=== PATIENT | female | born 1975 ===

== ENCOUNTER 2016-10-13 10:25 | Emergency (ER) | payer SELFPAY ==
[2016-10-13 10:44] VITALS: BMI 30.2
[2016-10-13 10:47] VITALS: TEMP 98.2; O2SAT 100
[2016-10-13] MEDS ORDERED: Sodium Chloride 0.9% 1,000 ML IV STA (11:17)
--- NOTE | 2016-10-13 11:20 | ED PDOC ---
Arrival/HPI - General Chief Complaint: Back Pain Time Seen by Provider: 10/13/16 11:06 Historian: Patient - History of Present Illness Narrative History of Present Illness (Text): 10/13/16 11:18 41 year old female who denies significant past medical history presents to the emergency department complaining of severe left flank pain for the past three days. Patient describes a dull pain associated with nausea. She states she has never had this pain before. She notes that she has had a fibroid before that felt somewhat similar but not this painful. Patient states she cannot find a comfortable position to alleviate the pain. She reports she last took Tylenol yesterday. Denies urinary symptoms, rash, or shortness of breath. No other complaints at this time. Time/Duration: < week Symptom Onset: Sudden Symptom Course: Unchanged Modifying Factors (Text): None Associated Symptoms (Text): Nausea Past Medical History - Provider Review Nursing Documentation Reviewed: Yes - Tetanus Immunization Tetanus Immunization: Unknown - Past Medical History Past Medical History: No Previous - Psychiatric Hx Psychophysiologic Disorder: No Hx Depression: No Hx Emotional Abuse: No Hx Physical Abuse: No Hx Substance Use: No - Surgical History Hx Section: Yes - Suicidal Assessment Feels Threatened In Home Enviroment: No Family/Social History - Physician Review Nursing Documentation Reviewed: Yes Family/Social History: Unknown Family HX Smoking Status: Light Smoker < 10 Cigarettes Daily Hx Alcohol Use: No Hx Substance Use: No Hx Substance Use Treatment: No Allergies/Home Meds Allergies/Adverse Reactions: Allergies aloe Allergy (Verified 10/13/16 10:44) RASH Review of Systems - Physician Review All systems were reviewed & negative as marked: Yes - Review of Systems Gastrointestinal: Nausea Genitourinary Female: absent: Dysuria, Frequency, Hematuria Musculoskeletal: Other (Left flank pain) Physical Exam - Physical Exam Narrative Physical Exam (Text): Constitutional: No acute distress. Head: Normocephalic. Atraumatic. Eyes: PERRL. ENT: Moist mucous membranes. Neck: Supple. Cardiovascular: Regular rate. Chest: No tenderness. Respiratory: Clear to auscultation bilaterally. GI: Soft. Nontender. Nondistended. Back: No CVA tenderness. Musculoskeletal: No tenderness or swelling of extremities. Skin: No rash. Neurologic: Alert, no focal deficit. Vital Signs Reviewed: Yes Vital Signs Temp Pulse Resp BP Pulse Ox 10/13/16 12:40 75 18 121/71 100 10/13/16 11:30 79 18 122/79 100 10/13/16 10:44 98.2 F 86 16 124/86 100 Temperature: Afebrile Blood Pressure: Normal Pulse: Regular Respiratory Rate: Normal Appearance: Positive for: Well-Appearing, Non-Toxic, Uncomfortable Pain Distress: Moderate Mental Status: Positive for: Alert and Oriented X 3 Medical Decision Making ED Course and Treatment: Impression: 41 year old female, no PMHX, presents with left flank pain with nausea for the past three days. Differential Diagnosis included but are not limited to: Kidney stone Plan: -- CT Abdomen/Pelvis -- Toradol, Zofran -- Labs -- Reassess and disposition Prior Visits: Notes and results from previous visits were reviewed. Patient was seen in the emergency department for nausea and vomiting on 10/01/14 and discharged home. Progress Notes: 10/13/16 12:39 CT Abdomen/Pelvis [employer] Decoration Designer: Dayday Shelton MD IMPRESSION: Fibroid uterus. No acute intra-abdominal findings. 10/13/16 12:45 Patient states she feels much better. Will discharge, advised f/u with OBGYN for fibroid, return to ER for worsening pain, fever, vomiting, dyspnea, or any other problem. - Lab Interpretations Lab Results: 10/13/16 12:10 10/13/16 12:10 Lab Results 10/13/16 12:10: WBC 6.3 D, RBC 3.84, Hgb 12.4, Hct 36.3, MCV 94.5, MCH 32.3, MCHC 34.2, RDW 12.5, Plt Count 243, MPV 9.8, Gran % 62.7, Lymph % (Auto) 29.9, Hardy % (Auto) 4.1, Eos % (Auto) 3.0, Baso % (Auto) 0.3, Gran # 3.96, Lymph # 1.9 , Hardy # 0.3, Eos # 0.2, Baso # 0.02, Sodium 137, Potassium 3.9, Chloride 102, Carbon Dioxide 27, Anion Gap 12, BUN 12, Creatinine 0.7, Est GFR ( Amer) > 60, Est GFR (Non-Af Amer) > 60, Random Glucose 115 H, Calcium 9.0, Total Bilirubin 0.4, AST 17, ALT 15, Alkaline Phosphatase 53, Total Protein 7.2, Albumin 3.7, Globulin 3.4, Albumin/Globulin Ratio 1.1, Lipase 57 10/13/16 11:20: Urine Color Yellow, Urine Appearance Clear, Urine pH 6.0, Ur Specific [place] 1.025, Urine Protein Negative, Urine Glucose (UA) Negative, Urine Ketones Negative, Urine Blood Small H, Urine Nitrate Negative, Urine Bilirubin Negative, Urine Urobilinogen 0.2, Ur Leukocyte Esterase Negative, Urine RBC 0 - 2, Urine WBC 0 - 2, Ur Epithelial Cells 3 - 4, Urine Bacteria Few , Urine HCG, Qual Negative - RAD Interpretation Radiology Orders: 10/13/16 11:17 ABD & PELVIS W/O PO OR IV CONT [CT] Stat - Medication Orders Current Medication Orders: Discontinued Medications Sodium Chloride (Sodium Chloride 0.9%) 1,000 mls @ 999 mls/hr IV .Q1H1M STA Stop: 10/13/16 12:17 Last Admin: 10/13/16 11:44 Dose: 999 MLS/HR eMAR Start Stop Document 10/13/16 11:44 EQ (Rec: 10/13/16 11:44 EQ [facility] [id number]) Intravenous Solution Start Date 10/13/16 Start Time 11:44 Ketorolac Tromethamine (Toradol) 30 mg IVP STAT STA Stop: 10/13/16 11:18 Last Admin: 10/13/16 11:32 Dose: 30 MG IVP Administration Document 10/13/16 11:32 EQ (Rec: 10/13/16 11:32 EQ [facility] [id number]) Charges for Administration # of IVP Administrations 1 Ondansetron HCl (Zofran Inj) 8 mg IVP STAT STA Stop: 10/13/16 11:18 Last Admin: 10/13/16 11:47 Dose: Not Given Non-Admin Reason: Patient Refused - Scribe Statement The provider has reviewed the documentation as recorded by the Akil Zelaya Provider Scribe Attestation: All medical record entries made by the Scribe were at my direction and personally dictated by me. I have reviewed the chart and agree that the record accurately reflects my personal performance of the history, physical exam, medical decision making, and the department course for this patient. I have also personally directed, reviewed, and agree with the discharge instructions and disposition. Disposition/Present on Arrival - Present on Arrival Any Indicators Present on Arrival: No History of DVT/PE: No History of Uncontrolled Diabetes: No Urinary Catheter: No History of Decub. Ulcer: No History Surgical Site Infection Following: None - Disposition Have Diagnosis and Disposition been Completed?: Yes Diagnosis: Flank pain, Fibroid Disposition: HOME/ ROUTINE Disposition Time: 12:45 Patient Plan: Discharge Condition: STABLE Discharge Instructions (ExitCare): Flank Pain (ED), Uterine Fibroids (ED) Prescriptions: Ibuprofen [Motrin] 600 mg PO Q6 #25 tab Famotidine [Pepcid] 1 tab PO BID #14 tab Ondansetron ODT [Zofran ODT] 4 mg PO Q8 #12 odt Forms: WORK NOTE
[2016-10-13 11:31] VITALS: RESP 18
[2016-10-13 11:31] LABS: URINE BILIRUBIN NEGATIVE (NEGATIVE); URINE BLOOD SMALL (NEGATIVE); URINE GLUCOSE (UA) NEGATIVE (NEGATIVE); URINE KETONE NEGATIVE (NEGATIVE); URINE LEUKOCYTE ESTERASE NEGATIVE Leu/uL (NEGATIVE); URINE PROTEIN NEGATIVE mg/dL (<30 mg/dL); URINE UROBILINOGEN 0.2 E.U./dL (<1 E.U./dL)
[2016-10-13 11:44] LABS: URINE APPEARANCE CLEAR (CLEAR); URINE COLOR YELLOW (YELLOW)
[2016-10-13 11:45] LABS: URINE BACTERIA FEW (NEG); URINE RBC 0 - 2 /hpf (0-2); URINE WBC 0 - 2 /hpf (0-6)
[2016-10-13 12:15] LABS: ADD MANUAL DIFF? NO
[2016-10-13 12:19] LABS: BASO # 0.02 K/mm3 (0.0-2.0); BASO % 0.3 % (0.0-3.0); EOS # 0.2 (0.0-0.7); GRAN # 3.96 (1.4-6.5); GRAN % 62.7 % (50.0-68.0); HEMATOCRIT 36.3 % (36.0-48.0); LYMPH # 1.9 (1.2-3.4); LYMPH % 29.9 % (22.0-35.0); MEAN CELL VOLUME 94.5 fL (80.0-105.0); MEAN CORPUSCULAR HEMOGLOBIN 32.3 pg (25.0-35.0); MEAN CORPUSCULAR HGB CONC 34.2 g/dl (31.0-37.0); MEAN PLATELET VOLUME 9.8 fl (7.0-11.0); MONO # 0.3 (0.1-0.6); MONO % 4.1 % (1.0-6.0); PLATELET COUNT 243 10^3/uL (120.0-450.0); RED CELL DISTRIBUTION WIDTH 12.5 % (11.5-14.5); WHITE BLOOD COUNT 6.3 10^3/ul (4.5-11.0)
--- NOTE | 2016-10-13 12:26 | CT ---
PROCEDURE: CT Abdomen and Pelvis without intravenous contrast HISTORY: L flank pain COMPARISON: None. TECHNIQUE: Without contrast.. Contrast Dose: Radiation dose: Total exam DLP = 636 mGy-cm. FINDINGS: LOWER THORAX: Unremarkable. LIVER: Unremarkable. No gross lesion or ductal dilatation. GALLBLADDER AND BILE DUCTS: Unremarkable. PANCREAS: Unremarkable. No gross lesion or ductal dilatation. SPLEEN: Unremarkable. ADRENALS: Unremarkable. No mass. KIDNEYS AND URETERS: Unremarkable. No hydronephrosis. No solid mass. There is a nonobstructing 2 mm stone in the right kidney VASCULATURE: Unremarkable. No aortic aneurysm. BOWEL: Unremarkable. No obstruction. No gross mural thickening. APPENDIX: Unremarkable. Normal appendix. PERITONEUM: Unremarkable. No free fluid. No free air. LYMPH NODES: Unremarkable. No enlarged lymph nodes. BLADDER: Unremarkable. REPRODUCTIVE: The uterine fundus is enlarged consistent with fibroids. The fundus measures 11.3 cm in width by 7.8 cm AP. BONES: No acute fracture. OTHER FINDINGS: None. IMPRESSION: Fibroid uterus. No acute intra-abdominal findings
[2016-10-13 12:28] LABS: ALB/GLOB RATIO 1.1 (1.1-1.8); ALKALINE PHOSPHATASE 53 U/L (38-133); ALT/SGPT 15 U/L (7-56); AST/SGOT 17 U/L (15-39); BILIRUBIN,TOTAL 0.4 mg/dL (0.2-1.3); BLOOD UREA NITROGEN 12 mg/dL (7-21); CARBON DIOXIDE 27 mmol/L (21-33); CHLORIDE 102 mmol/L (98-107); GFR AFRICAN-AMERICAN > 60; GLUCOSE,RANDOM 115 mg/dL (70-110); LIPASE 57 U/L (23-300); POTASSIUM 3.9 mmol/L (3.6-5.0); SODIUM 137 mmol/L (132-148); TOTAL PROTEIN 7.2 g/dL (5.8-8.3)
[2016-10-13 12:41] VITALS: BP 121/71; PULSE 75
== END 2016-10-13 12:52 | disposition home or self-care (01) ==
LOC: ED 10:25
DX: D25.9 Leiomyoma of uterus, unspecified (principal); R10.9 Unspecified abdominal pain
CPT/HCPCS: 74176; 80053; 81001; 83690; 84703; 85025; 87086; 96374; 99283; J1885; J7040

== ENCOUNTER 2017-03-12 11:37 | Emergency (ER) | payer OTHER ==
[2017-03-12 11:37] VITALS: BMI 30.2
[2017-03-12 11:50] VITALS: TEMP 97.9; O2SAT 100
[2017-03-12] MEDS ORDERED: Penicillin G Benzathine 2.4 Mill Unit/4 ml Syr IM ONE (12:12)
--- NOTE | 2017-03-12 12:22 | ED PDOC ---
Arrival/HPI - General Chief Complaint: ENT Problem Time Seen by Provider: 03/12/17 12:00 Historian: Patient - History of Present Illness Narrative History of Present Illness (Text): 03/12/17 12:45 Patient reports 3 days of sore throat with no other complaints. Otherwise: (-) cough, (-) sfever, (-) URI symptoms, (-) SOB, (-) chest pain, (-) N/V/D, (-) abdominal pain, (-) flank pain, (-) urinary symptoms, (-) recent travel, (-) sick contacts. PMD none Past Medical History - Provider Review Nursing Documentation Reviewed: Yes - Infectious Disease Hx of Infectious Diseases: None - Tetanus Immunization Tetanus Immunization: Unknown - Past Medical History Past Medical History: No Previous - Psychiatric Hx Psychophysiologic Disorder: No Hx Depression: No Hx Emotional Abuse: No Hx Physical Abuse: No Hx Substance Use: No - Surgical History Hx Section: Yes (x1) - Suicidal Assessment Feels Threatened In Home Enviroment: No Family/Social History - Physician Review Nursing Documentation Reviewed: Yes Family/Social History: No Known Family HX Smoking Status: Light Smoker < 10 Cigarettes Daily Hx Alcohol Use: Yes Frequency of alcohol use: Socially Hx Substance Use: No Hx Substance Use Treatment: No Allergies/Home Meds Allergies/Adverse Reactions: Allergies aloe Allergy (Verified 03/12/17 11:50) RASH Home Medications: Home Meds Medication Instructions Recorded Confirmed No Known Home Med 03/12/17 03/12/17 Review of Systems - Review of Systems Constitutional: Normal. absent: Fatigue, Weight Change, Fevers ENT: Normal, Sore Throat. absent: Hearing Changes, Rhinorrhea, Epistaxis, Sinus Congestion Respiratory: Normal. absent: SOB, Cough, Wheezing Musculoskeletal: Normal. absent: Arthralgias, Back Pain, Neck Pain Skin: Normal. absent: Rash, Pruritis, Skin Lesions Physical Exam - Physical Exam Narrative Physical Exam (Text): 03/12/17 12:46 GENERAL APPEARANCE: Patient is awake, alert, oriented x 3, in no acute distress. SKIN: Warm, dry; (-) cyanosis, (-) rash. EYES: (-) conjunctival pallor, (-) scleral icterus, (-) conjunctival hemorrhage. ENMT: Mucous membranes moist. TMs: (-) erythema. Airway patent: (-) stridor. Pharynx: (+) erythema, (+) exudate mostly on the L side. NECK: (-) tenderness, (-) stiffness, (-) meningismus, (+) non-tender anterior cervical lymphadenopathy. CHEST AND RESPIRATORY: (-) accessory muscle use. Lungs: (-) rales, (-) rhonchi, (-) wheezes, (-) rub; breath sounds equal bilaterally. HEART AND CARDIOVASCULAR: (-) irregularity; (-) murmur, (-) gallop, (-) rub. ABDOMEN AND GI: Soft; (-) tenderness, (-) guarding; (-) organomegaly; (-) mass ; (-) CVA tenderness. EXTREMITIES: (-) deformity; (-) cellulitis, (-) lymphangitis; (-) subungual hemorrhage; (-) edema. NEURO AND PSYCH: Mental status as above; (-) focal findings. Vital Signs Temp Pulse Resp BP Pulse Ox 03/12/17 11:45 97.9 F 86 18 119/76 100 Medical Decision Making ED Course and Treatment: 03/12/17 12:20 41 yo F presents with 3 day h/o sore throat. On exam, patient noted to have pharyngitis. Patient treated with penicillin G 1.2 million units IM. Patient advised to drink plenty of fluids. Take over-the- counter Tylenol or Motrin when necessary for fever and pain. Otherwise the patient was instructed to follow up with the clinic in 1-2 days without fail. Return to the emergency room at any time for any new or worsening symptoms. Patient states she fully agrees with and understands discharge instructions. States that she agrees with the plan and disposition. Verbalized and repeated discharge instructions and plan. I have given the patient opportunity to ask any additional questions. - Medication Orders Current Medication Orders: Discontinued Medications Penicillin G Benzathine (Bicillin L-A Inj) 1,200,000 units IM ONCE ONE PRN Reason: Protocol Stop: 03/12/17 12:31 - PA / MANAGER PET / Resident Statement / has reviewed & agrees with the documentation as recorded. Disposition/Present on Arrival - Present on Arrival Any Indicators Present on Arrival: No History of DVT/PE: No History of Uncontrolled Diabetes: No Urinary Catheter: No History of Decub. Ulcer: No History Surgical Site Infection Following: None - Disposition Have Diagnosis and Disposition been Completed?: Yes Diagnosis: Pharyngitis Disposition: HOME/ ROUTINE Disposition Time: 12:21 Patient Plan: Discharge Patient Problems: Current Active Problems Problem Status Onset Pharyngitis Acute Condition: STABLE Discharge Instructions (ExitCare): Pharyngitis (ED) Print Language: CUBAN Additional Instructions: Thank you for letting us take care of you today. You were treated for pharyngitis. The emergency medical care you received today was directed at your acute symptoms. If you were prescribed any medication, please fill it and take as directed. It may take several days for your symptoms to resolve. Return to the Emergency Department if your symptoms worsen, do not improve, or if you have any other problems. Please contact the clinic in 2 days for re-evaluation and follow up. Bring any paperwork you were given at discharge with you along with any medications you are taking to your follow up visit. Our treatment cannot replace ongoing medical care by a primary care provider (PCP) outside of the emergency department. Thank you for allowing the [facility] team to be part of your care today. Referrals: PCP,NO [Primary Care Provider] - [place] up [place] [facility] [place] [facility] [place] - Follow up with primary Forms: [employer] (Croatian), WORK NOTE
[2017-03-12] MEDS ORDERED: Penicillin G Benzathine 1.2 Mill Unit/2 ml Syr IM ONE (12:30)
[2017-03-12 13:06] VITALS: BP 118/72; PULSE 82; RESP 16
== END 2017-03-12 12:48 | disposition home or self-care (01) ==
LOC: ED 11:37
DX: J02.9 Acute pharyngitis, unspecified (principal); F17.210 Nicotine dependence, cigarettes, uncomplicated
CPT/HCPCS: 96372; 99283; J0561